=== PATIENT | male | born 1965 ===

== ENCOUNTER 2018-05-23 03:32 | Emergency (ER) | payer MEDICARE, MEDICAID ==
[2018-05-23 04:02] VITALS: RESP 18; TEMP 98.9; O2SAT 97
--- NOTE | 2018-05-23 04:18 | ED PDOC ---
HPI: Hypertension/Hypotension Time Seen by Provider: 05/23/18 03:57 Chief Complaint (Nursing): High Blood Pressure Chief Complaint (Provider): High Blood Pressure History Per: Patient History/Exam Limitations: no limitations Onset/Duration Of Symptoms: Mins (prior to arrival) Current Symptoms Are (Timing): Still Present Additional Complaint(s): 52 year old male with hx of htn and end stage renal disease (MWF dialysis, next session 10am this morning) presents to the ED for evaluation of elevated blood pressure. Patient states that prior to arrival, he checked his blood pressure and it was elevated, despite being compliant with his medications and otherwise asymptomatic, denying headache, chest pain, and shortness of breath. Of note, patient is visiting from [place] because his mother is hospitalized. PMD: none provided Past Medical History Reviewed: Historical Data, Nursing Documentation, Vital Signs Vital Signs: Last Vital Signs Temp 98.9 F 05/23/18 03:52 Pulse 65 05/23/18 03:52 Resp 18 05/23/18 03:52 BP 185/93 H 05/23/18 03:52 Pulse Ox 97 05/23/18 03:52 - Medical History PMH: HTN, End Stage Renal Disease (mwf dialysis) - Surgical History Other surgeries: av fistula - Family History Family History: States: Unknown Family Hx - Social History Current smoker - smoking cessation education provided: No Alcohol: None Drugs: Denies - Allergies Allergies/Adverse Reactions: Allergies Allergy/AdvReac Type Severity Reaction Status Date / Time No Known Allergies Allergy Verified 05/23/18 04:02 Review of Systems ROS Statement: Except As Marked, All Systems Reviewed And Found Negative Constitutional: Positive for: Other (high blood pressure) Cardiovascular: Negative for: Chest Pain Respiratory: Negative for: Shortness of Breath Neurological: Negative for: Headache Physical Exam - Reviewed Nursing Documentation Reviewed: Yes Vital Signs Reviewed: Yes - Physical Exam Appears: Positive for: No Acute Distress Head Exam: Positive for: ATRAUMATIC, NORMAL INSPECTION, NORMOCEPHALIC Skin: Positive for: Normal Color, Warm, Dry Eye Exam: Positive for: Normal appearance, EOMI, PERRL ENT: Positive for: Normal ENT Inspection Neck: Positive for: Normal, Painless ROM, Supple Cardiovascular/Chest: Positive for: Regular Rate, Rhythm Respiratory: Positive for: Normal Breath Sounds. Negative for: Accessory Muscle Use, Respiratory Distress Gastrointestinal/Abdominal: Positive for: Normal Exam, Soft. Negative for: Tenderness Back: Positive for: Normal Inspection Extremity: Positive for: Normal ROM Neurologic/Psych: Positive for: Alert, Oriented (x3) - Laboratory Results Result Diagrams: 05/23/18 04:44 05/23/18 04:44 - ECG O2 Sat by Pulse Oximetry: 97 (RA) Pulse Ox Interpretation: Normal Medical Decision Making Medical Decision Making: Time: 411 Initial Impression: 52 year old male with elevated bp and end stage renal disease Initial Plan: --EKG --CMP --CBC with differential --PT / PTT --Catapres 0.2mg PO 0630 Labs reviewed with no clinically significant abnormalities. He does have elevated creatinine and BUN levels consistent with end stage renal disease. At this time, patient's blood pressure shows significant improvements. Scribe Attestation: Documented by Radha Sánchez acting as a scribe for Pop Voss MD. Provider Scribe Attestation: All medical record entries made by the Scribe were at my direction and personally dictated by me. I have reviewed the chart and agree that the record accurately reflects my personal performance of the history, physical exam, medical decision making, and the department course for this patient. I have also personally directed, reviewed, and agree with the discharge instructions and disposition. Disposition - Clinical Impression Clinical Impression: Hypertension, End stage chronic kidney disease - Patient ED Disposition Is Patient to be Admitted: No Counseled Patient/Family Regarding: Studies Performed, Diagnosis - Disposition Disposition: Routine/Home Disposition Time: 06:36 Condition: STABLE Instructions: High Blood Pressure in Adults Forms: [facility] (Trinidadian) Print Language: GERMAN
[2018-05-23 04:53] LABS: BASO # 0.1 K/uL (0.0-0.2); BASO % 0.8 % (0.0-2.0); EOS # 0.2 K/uL (0.0-0.7); EOS % 2.5 % (0.0-4.0); HEMOGLOBIN 10.2 g/dL (12.0-18.0); LYMPH # 2.2 K/uL (1.0-4.3); LYMPH % 28.9 % (20.0-40.0); MEAN CELL VOLUME 93.4 fl (80.0-94.0); MEAN CORPUSCULAR HEMOGLOBIN 31.6 pg (27.0-31.0); MEAN CORPUSCULAR HGB CONC 33.9 g/dL (33.0-37.0); MEAN PLATELET VOLUME 8.9 fl (7.2-11.7); MONO # 0.8 K/uL (0.0-0.8); MONO % 11.2 % (0.0-10.0); NEUT # 4.3 K/uL (1.8-7.0); NEUT % 56.6 % (50.0-75.0); RBC 3.24 Mil/uL (4.40-5.90); RED CELL DISTRIBUTION WIDTH 15.9 % (11.5-14.5); WHITE BLOOD COUNT 7.5 K/uL (4.8-10.8)
[2018-05-23 05:00] LABS: PROTHROMBIN TIME 10.9 Seconds (9.8-13.1)
[2018-05-23 05:03] LABS: PARTIAL THROMBOPLASTIN TIME 39.3 Seconds (25.6-37.1)
[2018-05-23 05:11] LABS: ALB/GLOB RATIO 1.1 (1.0-2.1); ALBUMIN 4.1 g/dL (3.5-5.0); CALCIUM 9.8 mg/dL (8.4-10.2)
[2018-05-23 06:46] VITALS: BP 157/77; PULSE 53
--- NOTE | 2018-05-23 07:42 | CARD ---
APPROVED REPORT Date of service: 05/23/2018 EKG Measurement Heart [id number] <Conclusion> Sinus bradycardia Otherwise normal ECG
== END 2018-05-23 06:27 | disposition home or self-care (01) ==
LOC: H.ER 03:32
DX: I10 Essential (primary) hypertension (principal)

== ENCOUNTER 2018-05-28 20:17 | Observation (INO) | payer MEDICARE, MEDICAID ==
[2018-05-28 20:17] VITALS: BMI 33.5
--- NOTE | 2018-05-28 20:53 | ED PDOC ---
HPI: Chest Pain Time Seen by Provider: 05/28/18 20:38 Chief Complaint (Nursing): Chest Pain Chief Complaint (Provider): Chest Pain History Per: Patient History/Exam Limitations: no limitations Onset/Duration Of Symptoms: Hrs (x1.25) Current Symptoms Are (Timing): Still Present Quality: Pressure Associated Symptoms: denies: Nausea Additional Complaint(s): 52 y/o male with a PMHx of CVA and HTN presents to the ED for evaluation of constant chest pain, onset 7:30 PM today. Patient reports pain is non-radiating , non-exertional and pressure like. Patient reports he was last at dialysis today. Patient reports of taking his blood pressure and noticed it was high and took a hypertensive medication. Patient reports of taking Baby Aspirin daily. Of note, patient was discharged two days ago after being admitted for CVA. Denies shortness of breath and nausea. 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 Past Medical History Reviewed: Historical Data, Nursing Documentation, Vital Signs Vital Signs: Last Vital Signs Temp 98.8 F 05/28/18 20:31 Pulse 68 05/28/18 20:55 Resp 18 05/28/18 20:31 BP 168/81 H 05/28/18 20:31 Pulse Ox 99 05/28/18 20:55 - Medical History PMH: HTN, End Stage Renal Disease (mwf dialysis), Chronic Kidney Disease - Surgical History Surgical History: No Surg Hx Denies: CABG - Family History Family History: States: Unknown Family Hx - Home Medications Home Medications: Ambulatory Orders Medication Instructions Recorded Atenolol [Tenormin] 50 mg PO DAILY 05/24/18 Lanthanum Carbonate 1,000 mg PO TID 05/24/18 amLODIPine [Norvasc] 5 mg PO DAILY 05/24/18 cloNIDine [Catapres] 0.1 mg PO Q12 05/24/18 Aspirin 325 mg PO DAILY 30 Days #30 tab 05/26/18 Atorvastatin [Lipitor] 20 mg PO HS #30 tab 05/26/18 - Allergies Allergies/Adverse Reactions: Allergies Allergy/AdvReac Type Severity Reaction Status Date / Time No Known Allergies Allergy Verified 05/23/18 04:02 Review of Systems ROS Statement: Except As Marked, All Systems Reviewed And Found Negative Cardiovascular: Positive for: Chest Pain Respiratory: Negative for: Shortness of Breath Gastrointestinal: Negative for: Nausea Physical Exam - Reviewed Nursing Documentation Reviewed: Yes Vital Signs Reviewed: Yes - Physical Exam Appears: Positive for: No Acute Distress Head Exam: Positive for: ATRAUMATIC, NORMOCEPHALIC Skin: Positive for: Normal Color, Warm, Dry Eye Exam: Positive for: Normal appearance, EOMI, PERRL Neck: Positive for: Normal, Painless ROM Cardiovascular/Chest: Positive for: Regular Rate, Rhythm. Negative for: Murmur Respiratory: Positive for: Normal Breath Sounds. Negative for: Respiratory Distress Gastrointestinal/Abdominal: Positive for: Normal Exam, Soft. Negative for: Tenderness Back: Positive for: Normal Inspection. Negative for: L CVA Tenderness, R CVA Tenderness, Vertebral Tenderness Extremity: Positive for: Normal ROM. Negative for: Pedal Edema, Deformity Neurologic/Psych: Positive for: Alert, Oriented. Negative for: Motor/Sensory Deficits - Laboratory Results Result Diagrams: 05/28/18 21:08 - ECG ECG Rhythm: Positive for: Sinus Rhythm. Negative for: ST/T Changes Interpretation Of Abn EKG: Left Ventricular Hypertrophy Rate: 68 O2 Sat by Pulse Oximetry: 99 (RA) Pulse Ox Interpretation: Normal Medical Decision Making Medical Decision Making: Time: 2048 Plan: -- EKG -- B-Type Natriuretic -- CMP -- Lipid Panel -- Troponin I -- CBC with differentials -- PTT -- Prothrombin Time -- CXR One View -- Director Of Patient Care Scribe Attestation: Documented by Cody Reeder acting as a scribe for Zayda Brown MD. Provider Scribe Attestation: All medical record entries made by the Scribe were at my direction and personally dictated by me. I have reviewed the chart and agree that the record accurately reflects my personal performance of the history, physical exam, medical decision making, and the department course for this patient. I have also personally directed, reviewed, and agree with the discharge instructions and disposition. Disposition - Disposition Forms: [facility] (Angolan)
[2018-05-28 21:12] LABS: BASO # 0.1 K/uL (0.0-0.2); BASO % 0.7 % (0.0-2.0); EOS # 0.2 K/uL (0.0-0.7); EOS % 1.9 % (0.0-4.0); HEMOGLOBIN 11.8 g/dL (12.0-18.0); LYMPH % 21.7 % (20.0-40.0); MEAN CELL VOLUME 90.7 fl (80.0-94.0); MEAN CORPUSCULAR HEMOGLOBIN 30.9 pg (27.0-31.0); MEAN CORPUSCULAR HGB CONC 34.1 g/dL (33.0-37.0); MONO % 10.3 % (0.0-10.0); NEUT # 6.1 K/uL (1.8-7.0); NEUT % 65.4 % (50.0-75.0); RBC 3.83 Mil/uL (4.40-5.90); RED CELL DISTRIBUTION WIDTH 15.9 % (11.5-14.5); WHITE BLOOD COUNT 9.3 K/uL (4.8-10.8)
[2018-05-28 21:30] LABS: PROTHROMBIN TIME 11.1 Seconds (9.8-13.1)
[2018-05-28 21:32] LABS: PARTIAL THROMBOPLASTIN TIME 35.4 Seconds (25.6-37.1)
[2018-05-28 21:41] LABS: ALB/GLOB RATIO 1.1 (1.0-2.1); ALBUMIN 4.7 g/dL (3.5-5.0); ALT/SGPT 50 U/L (21-72); AST/SGOT 45 U/L (17-59); B-TYPE NATRIURETIC PEPTIDE 14900 pg/ml (0-900); BLOOD UREA NITROGEN 30 mg/dl (9-20); CALCIUM 9.9 mg/dL (8.4-10.2); HDL CHOLESTEROL 41 MG/DL (30-70); LDL CHOLESTEROL 32 mg/dL (0-129)
[2018-05-28 21:46] LABS: GFR NON-AFRICAN AMERICAN 6
[2018-05-29] MEDS ORDERED: Influenza Vaccine (5 YR UP)/PF 60 MCG/0.5 ML SYR IM ONE (06:00)
[2018-05-29] MEDS: LANTHANUM 1000 MG PO SCH ×3 (09:35→17:46)
--- NOTE | 2018-05-29 12:35 | RAD ---
Date of service: 05/28/2018 PROCEDURE: CHEST RADIOGRAPH, 1 VIEW HISTORY: Chest pain COMPARISON: 05/24/2018 FINDINGS: Right-sided double-lumen central venous catheter terminates in the SVC. LUNGS: The lungs are well inflated and clear. PLEURA: No pneumothorax or pleural fluid seen. CARDIOVASCULAR: Normal. OSSEOUS STRUCTURES: No significant abnormalities. VISUALIZED UPPER ABDOMEN: Normal. OTHER FINDINGS: None. IMPRESSION: No active pulmonary disease.
--- NOTE | 2018-05-29 12:35 | CARD ---
APPROVED REPORT Date of service: 05/28/2018 EKG Measurement Heart [id number] <Conclusion> Normal sinus rhythm Minimal voltage criteria for LVH, may be normal variant Borderline ECG
--- NOTE | 2018-05-29 12:36 | CARD ---
APPROVED REPORT Date of service: 05/29/2018 EKG Measurement Heart [id number] 182P48 [id number] <Conclusion> Sinus bradycardia Minimal voltage criteria for LVH, may be normal variant prolonged QT abnormal ECG
--- NOTE | 2018-05-29 16:13 | CP.PCM.HP ---
History of Present Illness - History of Present Illness History of Present Illness: CC:Chest Pain History of Present Illness: A 52 y/o male with a PMHx of CVA and HTN presents to the ED for evaluation of constant chest pain, onset 7:30 PM today. Patient reports pain is non-radiating, non-exertional and pressure like. Patient reports he was last at dialysis today. Patient reports of taking his blood pressure and noticed it was high and took a hypertensive medication. Patient reports of taking Baby Aspirin daily. Of note, patient was discharged two days ago after being admitted for CVA. Denies shortness of breath and nausea. Present on Admission - Present on Admission Any Indicators Present on Admission: No Review of Systems - Review of Systems All systems: reviewed and no additional remarkable complaints except Review of Systems: as per HPI Past Patient History - Past Medical History & Family History Past Medical History?: Yes Past Family History: Reviewed and not pertinent - Past Social History Smoking Status: Never Smoked Alcohol: None Drugs: Denies - CARDIAC Hx Cardiac Disorders: Yes Hx Hypertension: Yes - PULMONARY Hx Respiratory Disorders: No - NEUROLOGICAL Hx Neurological Disorder: Yes HX Cerebrovascular Accident: Yes - HEENT Hx HEENT Problems: Yes - RENAL Hx Chronic Kidney Disease: Yes Hx Dialysis: Yes Type of Dialysis Access: RIGHT S/C PERMACATH Date of Last Dialysis Treatment: 05/28/18 - ENDOCRINE/METABOLIC Hx Endocrine Disorders: No - HEMATOLOGICAL/ONCOLOGICAL Hx Blood Disorders: No - INTEGUMENTARY Hx Dermatological Problems: No - MUSCULOSKELETAL/RHEUMATOLOGICAL Hx Musculoskeletal Disorders: No Hx Falls: No - GASTROINTESTINAL Hx Gastrointestinal Disorders: No - GENITOURINARY/GYNECOLOGICAL Hx Genitourinary Disorders: No - PSYCHIATRIC Hx Psychophysiologic Disorder: No Hx Substance Use: No - SURGICAL HISTORY Hx Surgeries: No - ANESTHESIA Hx Anesthesia: Yes Hx Anesthesia Reactions: No Hx Malignant Hyperthermia: No Meds Allergies/Adverse Reactions: Allergies Allergy/AdvReac Type Severity Reaction Status Date / Time No Known Allergies Allergy Verified 05/23/18 04:02 Physical Exam - Constitutional Appears: Well, No Acute Distress - Head Exam Head Exam: ATRAUMATIC, NORMAL INSPECTION, NORMOCEPHALIC - Eye Exam Eye Exam: EOMI, Normal appearance, PERRL Pupil Exam: NORMAL ACCOMODATION, PERRL - ENT Exam ENT Exam: Mucous Membranes Moist, Normal Exam - Neck Exam Neck exam: Positive for: Normal Inspection - Respiratory Exam Respiratory Exam: Clear to Auscultation Bilateral, NORMAL BREATHING PATTERN - Cardiovascular Exam Cardiovascular Exam: REGULAR RHYTHM, +S1, +S2 - GI/Abdominal Exam GI & Abdominal Exam: Normal Bowel Sounds, Soft. absent: Tenderness - Extremities Exam Extremities exam: Positive for: full ROM, normal inspection - Back Exam Back exam: FULL ROM, NORMAL INSPECTION - Neurological Exam Neurological exam: Alert, CN II-XII Intact, Normal Gait, Oriented x3, Reflexes Normal - Psychiatric Exam Psychiatric exam: Normal Affect, Normal Mood - Skin Skin Exam: Dry, Intact, Normal Color, Warm Results - Vital Signs Recent Vital Signs: Last Vital Signs Temp 98.1 F 05/29/18 16:10 Pulse 59 L 05/29/18 16:10 Resp 20 05/29/18 16:10 BP 155/73 H 05/29/18 16:10 Pulse Ox 98 05/29/18 16:10 - Labs Result Diagrams: 05/28/18 21:08 05/28/18 21:08 Labs: Laboratory Results - last 24 hr 05/28/18 05/28/18 05/28/18 21:08 21:08 21:08 WBC 9.3 RBC 3.83 L Hgb 11.8 L Hct 34.7 L MCV 90.7 D MCH 30.9 MCHC 34.1 RDW 15.9 H Plt Count 216 MPV 9.0 Neut % (Auto) 65.4 Lymph % (Auto) 21.7 [place] % (Auto) 10.3 H Eos % (Auto) 1.9 Baso % (Auto) 0.7 Neut # (Auto) 6.1 Lymph # (Auto) 2.0 [place] # (Auto) 1.0 H Eos # (Auto) 0.2 Baso # (Auto) 0.1 PT 11.1 INR 1.0 APTT 35.4 Sodium 138 Potassium 4.3 Chloride 95 L Carbon Dioxide 33 H Anion Gap 14 BUN 30 H Creatinine 9.1 H* D Est GFR ( Amer) 7 Est GFR (Non-Af Amer) 6 Random Glucose 95 Calcium 9.9 Total Bilirubin 0.4 AST 45 ALT 50 Alkaline Phosphatase 84 Troponin I < 0.0120 NT-Pro-B Natriuret Pep 80999 H Total Protein 8.8 H Albumin 4.7 Globulin 4.1 H Albumin/Globulin Ratio 1.1 Triglycerides 143 Cholesterol 106 LDL Cholesterol Direct 32 HDL Cholesterol 41 05/29/18 05/29/18 05:00 13:00 WBC RBC Hgb Hct MCV MCH MCHC RDW Plt Count MPV Neut % (Auto) Lymph % (Auto) [place] % (Auto) Eos % (Auto) Baso % (Auto) Neut # (Auto) Lymph # (Auto) [place] # (Auto) Eos # (Auto) Baso # (Auto) PT INR APTT Sodium Potassium Chloride Carbon Dioxide Anion Gap BUN Creatinine Est GFR ( Amer) Est GFR (Non-Af Amer) Random Glucose Calcium Total Bilirubin AST ALT Alkaline Phosphatase Troponin I < 0.0120 < 0.0120 NT-Pro-B Natriuret Pep Total Protein Albumin Globulin Albumin/Globulin Ratio Triglycerides Cholesterol LDL Cholesterol Direct HDL Cholesterol - EKG Data EKG shows normal: Sinus rhythm Rate: Normal - Imaging and Cardiology Chest x-ray Status: Report reviewed by me Additional comment: Date of service: 05/28/2018 PROCEDURE: CHEST RADIOGRAPH, 1 VIEW HISTORY: Chest pain COMPARISON: 05/24/2018 FINDINGS: Right-sided double-lumen central venous catheter terminates in the SVC. LUNGS: The lungs are well inflated and clear. PLEURA: No pneumothorax or pleural fluid seen. CARDIOVASCULAR: Normal. OSSEOUS STRUCTURES: No significant abnormalities. VISUALIZED UPPER ABDOMEN: Normal. OTHER FINDINGS: None. IMPRESSION: No active pulmonary disease. Assessment & Plan (1) Chest pain Status: Acute Priority: High (2) CVA (cerebral vascular accident) Status: Chronic Priority: High (3) Anemia Status: Chronic Priority: Low (4) End stage chronic kidney disease Status: Chronic Priority: Low (5) Hypertension Status: Chronic Priority: Low - Assessment and Plan (Free Text) Plan: O2 Via NC ASA Serial Trop and EKG Echo- done last week and Echo Cardiology Consult
--- NOTE | 2018-05-29 18:20 | CP.PCM.CON ---
History of Present Illness - History of Present Illness History of Present Illness: patient is a 52 years of age male was just discharged from the hospital couple days ago with diagnosis of acute CVA which was minor. And patient was readmitted because of the chest pain that he came to the emergency room for further ev aluation. Patient known with end stage renal disease on maintenance hemodialysis 3 times a week Monday. History of hypertension Patient visiting temporarily here from [place] and receiving temporarily dialysis at [facility] Social history not contributory Review of Systems - Constitutional Constitutional: Anorexia. absent: Chills - Cardiovascular Cardiovascular: Chest Pain. absent: Acrocyanosis, Dyspnea, Leg Edema - Respiratory Respiratory: absent: Hemoptysis - Genitourinary Genitourinary: Nocturia - Musculoskeletal Musculoskeletal: absent: Back Pain, Numbness - Neurological Neurological: absent: Abnormal Gait, Confusion, Focal Weakness - Endocrine Endocrine: absent: Fatigue - Hematologic/Lymphatic Hematologic: absent: Easy Bleeding Past Patient History - Past Medical History & Family History Past Medical History?: Yes - Past Social History Smoking Status: Never Smoked - CARDIAC Hx Cardiac Disorders: Yes Hx Hypertension: Yes - PULMONARY Hx Respiratory Disorders: No - NEUROLOGICAL Hx Neurological Disorder: Yes HX Cerebrovascular Accident: Yes - HEENT Hx HEENT Problems: Yes - RENAL Hx Chronic Kidney Disease: Yes Hx Dialysis: Yes Type of Dialysis Access: RIGHT S/C PERMACATH Date of Last Dialysis Treatment: 05/28/18 - ENDOCRINE/METABOLIC Hx Endocrine Disorders: No - HEMATOLOGICAL/ONCOLOGICAL Hx Blood Disorders: No - INTEGUMENTARY Hx Dermatological Problems: No - MUSCULOSKELETAL/RHEUMATOLOGICAL Hx Musculoskeletal Disorders: No Hx Falls: No - GASTROINTESTINAL Hx Gastrointestinal Disorders: No - GENITOURINARY/GYNECOLOGICAL Hx Genitourinary Disorders: No - PSYCHIATRIC Hx Psychophysiologic Disorder: No Hx Substance Use: No - SURGICAL HISTORY Hx Surgeries: No - ANESTHESIA Hx Anesthesia: Yes Hx Anesthesia Reactions: No Hx Malignant Hyperthermia: No Meds Home Medications: Home Medication List Medication Instructions Recorded Confirmed Type Losartan [Cozaar] 100 mg PO DAILY #30 tab 05/30/18 Rx Allergies/Adverse Reactions: Allergies Allergy/AdvReac Type Severity Reaction Status Date / Time No Known Allergies Allergy Verified 05/23/18 04:02 - Medications Medications: Current Medications Amlodipine Besylate (Norvasc) 5 mg PO DAILY [id number] Last Admin: 05/29/18 09:35 Dose: 5 mg Aspirin (Aspirin) 325 mg PO DAILY [facility] Last Admin: 05/29/18 09:35 Dose: 325 mg Atenolol (Tenormin) 50 mg PO DAILY [facility] Last Admin: 05/29/18 09:35 Dose: 50 mg Atorvastatin Calcium (Lipitor) 20 mg PO HS [facility] Last Admin: 05/29/18 00:25 Dose: 20 mg Clonidine HCl (Catapres) 0.1 mg PO Q12 [facility] Last Admin: 05/29/18 09:35 Dose: 0.1 mg Heparin Sodium (Porcine) (Heparin) 5,000 units SC Q8 [facility]; Protocol Last Admin: 05/29/18 17:46 Dose: 5,000 units Lanthanum Carbonate (Fosrenol) 1,000 mg PO TID [facility] Last Admin: 05/29/18 17:46 Dose: 1,000 mg Physical Exam - Constitutional Appears: No Acute Distress - Eye Exam Eye Exam: Conjunctival injection - ENT Exam ENT Exam: Mucous Membranes Moist - Neck Exam Neck exam: Negative for: Lymphadenopathy - Respiratory Exam Respiratory Exam: NORMAL BREATHING PATTERN. absent: Chest Wall Tenderness, Rales, Rhonchi - Cardiovascular Exam Cardiovascular Exam: absent: Clicks, Gallop, JVD, Rubs - GI/Abdominal Exam GI & Abdominal Exam: Normal Bowel Sounds. absent: Guarding - Extremities Exam Extremities exam: Negative for: calf tenderness - Back Exam Back exam: absent: CVA tenderness (L), CVA tenderness (R) - Neurological Exam Neurological exam: Alert - Psychiatric Exam Psychiatric exam: Normal Affect Results - Vital Signs Recent Vital Signs: Last Vital Signs Temp 98.1 F 05/29/18 16:10 Pulse 59 L 05/29/18 16:10 Resp 20 05/29/18 16:10 BP 155/73 H 05/29/18 16:10 Pulse Ox 98 05/29/18 16:10 - Labs Result Diagrams: 05/28/18 21:08 05/28/18 21:08 Labs: Laboratory Results - last 24 hr 05/28/18 05/28/18 05/28/18 21:08 21:08 21:08 WBC 9.3 RBC 3.83 L Hgb 11.8 L Hct 34.7 L MCV 90.7 D MCH 30.9 MCHC 34.1 RDW 15.9 H Plt Count 216 MPV 9.0 Neut % (Auto) 65.4 Lymph % (Auto) 21.7 [place] % (Auto) 10.3 H Eos % (Auto) 1.9 Baso % (Auto) 0.7 Neut # (Auto) 6.1 Lymph # (Auto) 2.0 [place] # (Auto) 1.0 H Eos # (Auto) 0.2 Baso # (Auto) 0.1 PT 11.1 INR 1.0 APTT 35.4 Sodium 138 Potassium 4.3 Chloride 95 L Carbon Dioxide 33 H Anion Gap 14 BUN 30 H Creatinine 9.1 H* D Est GFR ( Amer) 7 Est GFR (Non-Af Amer) 6 Random Glucose 95 Calcium 9.9 Total Bilirubin 0.4 AST 45 ALT 50 Alkaline Phosphatase 84 Troponin I < 0.0120 NT-Pro-B Natriuret Pep 59310 H Total Protein 8.8 H Albumin 4.7 Globulin 4.1 H Albumin/Globulin Ratio 1.1 Triglycerides 143 Cholesterol 106 LDL Cholesterol Direct 32 HDL Cholesterol 41 05/29/18 05/29/18 05:00 13:00 WBC RBC Hgb Hct MCV MCH MCHC RDW Plt Count MPV Neut % (Auto) Lymph % (Auto) [place] % (Auto) Eos % (Auto) Baso % (Auto) Neut # (Auto) Lymph # (Auto) [place] # (Auto) Eos # (Auto) Baso # (Auto) PT INR APTT Sodium Potassium Chloride Carbon Dioxide Anion Gap BUN Creatinine Est GFR ( Amer) Est GFR (Non-Af Amer) Random Glucose Calcium Total Bilirubin AST ALT Alkaline Phosphatase Troponin I < 0.0120 < 0.0120 NT-Pro-B Natriuret Pep Total Protein Albumin Globulin Albumin/Globulin Ratio Triglycerides Cholesterol LDL Cholesterol Direct HDL Cholesterol Assessment & Plan (1) Anemia Status: Chronic Priority: Low (2) End stage chronic kidney disease Assessment and Plan: end stage renal disease patient admitted for atypical chest pain hemodialysis Monday History of hypertension Hyperphosphatemia Secondary hyperparathyroidism The plan Continue hemodialysis for tomorrow as scheduled Monday. 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
[2018-05-29 23:44] VITALS: RESP 18
[2018-05-30 05:00] VITALS: O2SAT 97
[2018-05-30 08:29] VITALS: BP 161/76; PULSE 54; TEMP 97.5
[2018-05-30] MEDS: LANTHANUM 1000 MG PO SCH ×2 (09:16→13:16)
--- NOTE | 2018-05-30 10:07 | CP.PCM.CON ---
History of Present Illness - History of Present Illness History of Present Illness: 52 y/o male admitted with chest pain Dull aching bilateral chest no radiation not related to movement or exertion claims the pain lasted one hour and has not returned NO SOB/THOMPSON Denies chest pain today Troponin: neg BNP: 14,900 EKG: NSR Echo: good LV function EF: 55-60% MR ORTIZ PMH: HTN ESRD CVA Past Patient History - Past Medical History & Family History Past Medical History?: Yes Past Family History: Reviewed and not pertinent - Past Social History Smoking Status: Never Smoked Alcohol: None Drugs: Denies - CARDIAC Hx Cardiac Disorders: Yes Hx Hypertension: Yes - PULMONARY Hx Respiratory Disorders: No - NEUROLOGICAL Hx Neurological Disorder: Yes HX Cerebrovascular Accident: Yes - HEENT Hx HEENT Problems: Yes - RENAL Hx Chronic Kidney Disease: Yes Hx Dialysis: Yes Type of Dialysis Access: RIGHT S/C PERMACATH Date of Last Dialysis Treatment: 05/28/18 - ENDOCRINE/METABOLIC Hx Endocrine Disorders: No - HEMATOLOGICAL/ONCOLOGICAL Hx Blood Disorders: No - INTEGUMENTARY Hx Dermatological Problems: No - MUSCULOSKELETAL/RHEUMATOLOGICAL Hx Musculoskeletal Disorders: No Hx Falls: No - GASTROINTESTINAL Hx Gastrointestinal Disorders: No - GENITOURINARY/GYNECOLOGICAL Hx Genitourinary Disorders: No - PSYCHIATRIC Hx Psychophysiologic Disorder: No Hx Substance Use: No - SURGICAL HISTORY Hx Surgeries: No - ANESTHESIA Hx Anesthesia: Yes Hx Anesthesia Reactions: No Hx Malignant Hyperthermia: No Meds Home Medications: Home Medication List Medication Instructions Recorded Confirmed Type Losartan [Cozaar] 100 mg PO DAILY #30 tab 05/30/18 Rx Allergies/Adverse Reactions: Allergies Allergy/AdvReac Type Severity Reaction Status Date / Time No Known Allergies Allergy Verified 05/23/18 04:02 - Medications Medications: Current Medications Amlodipine Besylate (Norvasc) 5 mg PO DAILY [facility] Last Admin: 05/29/18 09:35 Dose: 5 mg Aspirin (Aspirin) 325 mg PO DAILY [facility] Last Admin: 05/30/18 09:16 Dose: 325 mg Atenolol (Tenormin) 50 mg PO DAILY [facility] Last Admin: 05/30/18 09:16 Dose: 50 mg Atorvastatin Calcium (Lipitor) 20 mg PO HS [facility] Last Admin: 05/29/18 21:58 Dose: 20 mg Clonidine HCl (Catapres) 0.1 mg PO Q12 [facility] Last Admin: 05/30/18 09:16 Dose: 0.1 mg Heparin Sodium (Porcine) (Heparin) 5,000 units SC Q8 [facility]; Protocol Last Admin: 05/30/18 09:16 Dose: 5,000 units Lanthanum Carbonate (Fosrenol) 1,000 mg PO TID [facility] Last Admin: 05/30/18 09:16 Dose: 1,000 mg Physical Exam - Constitutional Appears: Well - Head Exam Head Exam: NORMAL INSPECTION - Eye Exam Eye Exam: Normal appearance - ENT Exam ENT Exam: Normal Exam - Respiratory Exam Respiratory Exam: NORMAL BREATHING PATTERN - Cardiovascular Exam Cardiovascular Exam: REGULAR RHYTHM Results - Vital Signs Recent Vital Signs: Last Vital Signs Temp 97.5 F L 05/30/18 08:28 Pulse 54 L 05/30/18 08:28 Resp 18 05/30/18 08:28 BP 161/76 H 05/30/18 08:28 Pulse Ox 97 05/30/18 08:28 - Labs Result Diagrams: 05/28/18 21:08 05/28/18 21:08 Labs: Laboratory Results - last 24 hr 05/29/18 13:00 Troponin I < 0.0120 Assessment & Plan (1) Chest pain Assessment and Plan: Non Cardiac chest pain pt may be discharged Status: Acute Priority: High (2) Anemia Status: Chronic Priority: Low (3) CVA (cerebral vascular accident) Status: Chronic Priority: High (4) End stage chronic kidney disease Status: Chronic Priority: Low (5) Hypertension Status: Chronic Priority: Low
--- NOTE | 2018-05-30 13:51 | CP.PCM.PN ---
Subjective - Date & Time of Evaluation Date of Evaluation: 05/30/18 Time of Evaluation: 13:50 - Subjective Subjective: dialysis note he was seen on hemodialysis now. Vital signs stable Blood pressure elevated predialysis and to be rechecked post dialysis No chest pain no shortness of breath Objective - Vital Signs/Intake and Output Vital Signs (last 24 hours): Temp Pulse Resp BP Pulse Ox 97.5 F L 54 L 18 161/76 H 97 05/30/18 08:28 05/30/18 08:28 05/30/18 08:28 05/30/18 08:28 05/30/18 08:28 - Medications Medications: Current Medications Amlodipine Besylate (Norvasc) 5 mg PO DAILY [facility] Last Admin: 05/30/18 09:16 Dose: 5 mg Aspirin (Aspirin) 325 mg PO DAILY [facility] Last Admin: 05/30/18 09:16 Dose: 325 mg Atenolol (Tenormin) 50 mg PO DAILY [facility] Last Admin: 05/30/18 09:16 Dose: 50 mg Atorvastatin Calcium (Lipitor) 20 mg PO HS [facility] Last Admin: 05/29/18 21:58 Dose: 20 mg Clonidine HCl (Catapres) 0.1 mg PO Q12 [facility] Last Admin: 05/30/18 09:16 Dose: 0.1 mg Heparin Sodium (Porcine) (Heparin) 5,000 units SC Q8 [facility]; Protocol Last Admin: 05/30/18 09:16 Dose: 5,000 units Lanthanum Carbonate (Fosrenol) 1,000 mg PO TID [facility] Last Admin: 05/30/18 13:16 Dose: 1,000 mg Losartan Potassium (Cozaar) 100 mg PO DAILY [facility] - Labs Labs: 05/28/18 21:08 05/28/18 21:08 PT 11.1 Seconds (9.8-13.1) 05/28/18 21:08 INR 1.0 05/28/18 21:08 APTT 35.4 Seconds (25.6-37.1) 05/28/18 21:08 - Constitutional Appears: No Acute Distress - Eye Exam Eye Exam: Conjunctival injection - ENT Exam ENT Exam: Mucous Membranes Moist - Neck Exam Neck Exam: absent: Lymphadenopathy - Respiratory Exam Respiratory Exam: NORMAL BREATHING PATTERN. absent: Chest Wall Tenderness - Cardiovascular Exam Cardiovascular Exam: REGULAR RHYTHM. absent: Gallop, JVD - GI/Abdominal Exam GI & Abdominal Exam: Soft, Normal Bowel Sounds - Extremities Exam Extremities Exam: absent: Calf Tenderness - Back Exam Back Exam: absent: CVA tenderness (L), CVA tenderness (R) - Neurological Exam Neurological Exam: Alert - Psychiatric Exam Psychiatric exam: Normal Affect - Skin Skin Exam: absent: Cyanosis Assessment and Plan (1) Anemia Status: Chronic (2) End stage chronic kidney disease Assessment & Plan: end stage renal disease Hypertension we will add losartan Potassium bath 2 mEq Carbonate bath 34 Ultrafiltration 2500 mL He was seen on hemodialysis and I discussed the dialysis order with the dialysis nurse at the bedside Status: Chronic (3) Hypertension Status: Chronic
--- NOTE | 2018-05-30 14:09 | CP.PCM.PCO ---
Assessment & Plan - Assessment and Plan (Free Text) Assessment: pt. cleared for discharge today after dialysis by , and check VS post HD- d/w [facility]
[2018-05-30 17:42] LABS: HEPATITIS B SURFACE AG Negative (NEGATIVE)
[2018-05-30 17:47] LABS: HEPATITIS B CORE AB NEGATIVE (NEGATIVE)
[2018-05-30 17:59] LABS: HEPATITIS C ANTIBODY NEGATIVE (NEGATIVE)
--- NOTE | 2018-05-31 09:12 | CP.PCM.DIS ---
Provider - Provider Date of Admission: 05/28/18 21:53 Attending physician: Kosta Alanis MD Time Spent in preparation of Discharge (in minutes): 25 Diagnosis - Discharge Diagnosis (1) Chest pain Status: Acute Priority: High (2) CVA (cerebral vascular accident) Status: Chronic Priority: Medium (3) Anemia Status: Chronic Priority: Low (4) End stage chronic kidney disease Status: Chronic Priority: Low (5) Hypertension Status: Chronic Priority: Low Hospital Course - Lab Results Lab Results: Most Recent Lab Values WBC 9.3 K/uL (4.8-10.8) 05/28/18 21:08 RBC 3.83 Mil/uL (4.40-5.90) L 05/28/18 21:08 Hgb 11.8 g/dL (12.0-18.0) L 05/28/18 21:08 Hct 34.7 % (35.0-51.0) L 05/28/18 21:08 MCV 90.7 fl (80.0-94.0) D 05/28/18 21:08 MCH 30.9 pg (27.0-31.0) 05/28/18 21:08 MCHC 34.1 g/dL (33.0-37.0) 05/28/18 21:08 RDW 15.9 % (11.5-14.5) H 05/28/18 21:08 Plt Count 216 K/uL (130-400) 05/28/18 21:08 MPV 9.0 fl (7.2-11.7) 05/28/18 21:08 Neut % (Auto) 65.4 % (50.0-75.0) 05/28/18 21:08 Lymph % (Auto) 21.7 % (20.0-40.0) 05/28/18 21:08 [place] % (Auto) 10.3 % (0.0-10.0) H 05/28/18 21:08 Eos % (Auto) 1.9 % (0.0-4.0) 05/28/18 21:08 Baso % (Auto) 0.7 % (0.0-2.0) 05/28/18 21:08 Neut # (Auto) 6.1 K/uL (1.8-7.0) 05/28/18 21:08 Lymph # (Auto) 2.0 K/uL (1.0-4.3) 05/28/18 21:08 [place] # (Auto) 1.0 K/uL (0.0-0.8) H 05/28/18 21:08 Eos # (Auto) 0.2 K/uL (0.0-0.7) 05/28/18 21:08 Baso # (Auto) 0.1 K/uL (0.0-0.2) 05/28/18 21:08 PT 11.1 Seconds (9.8-13.1) 05/28/18 21:08 INR 1.0 05/28/18 21:08 APTT 35.4 Seconds (25.6-37.1) 05/28/18 21:08 Sodium 138 mmol/l (132-148) 05/28/18 21:08 Potassium 4.3 MMOL/L (3.6-5.0) 05/28/18 21:08 Chloride 95 mmol/L (98-107) L 05/28/18 21:08 Carbon Dioxide 33 mmol/L (22-30) H 05/28/18 21:08 Anion Gap 14 (10-20) 05/28/18 21:08 BUN 30 mg/dl (9-20) H 05/28/18 21:08 Creatinine 9.1 mg/dl (0.8-1.5) H* D 05/28/18 21:08 Est GFR ( Amer) 7 05/28/18 21:08 Est GFR (Non-Af Amer) 6 05/28/18 21:08 Random Glucose 95 mg/dL (75-110) 05/28/18 21:08 Calcium 9.9 mg/dL (8.4-10.2) 05/28/18 21:08 Total Bilirubin 0.4 mg/dl (0.2-1.3) 05/28/18 21:08 AST 45 U/L (17-59) 05/28/18 21:08 ALT 50 U/L (21-72) 05/28/18 21:08 Alkaline Phosphatase 84 U/L (38-126) 05/28/18 21:08 Troponin I < 0.0120 ng/mL (0.00-0.120) 05/29/18 13:00 NT-Pro-B Natriuret Pep 12633 pg/ml (0-900) H 05/28/18 21:08 Total Protein 8.8 G/DL (6.3-8.2) H 05/28/18 21:08 Albumin 4.7 g/dL (3.5-5.0) 05/28/18 21:08 Globulin 4.1 gm/dL (2.2-3.9) H 05/28/18 21:08 Albumin/Globulin Ratio 1.1 (1.0-2.1) 05/28/18 21:08 Triglycerides 143 mg/DL (0-149) 05/28/18 21:08 Cholesterol 106 mg/dL (0-199) 05/28/18 21:08 LDL Cholesterol Direct 32 mg/dL (0-129) 05/28/18 21:08 HDL Cholesterol 41 MG/DL (30-70) 05/28/18 21:08 Hep Bs Antigen Negative (NEGATIVE) 05/30/18 11:47 Hep Bs Antibody Positive (NEGATIVE) 05/30/18 11:47 Hep B Core IgM Ab Negative (NEGATIVE) 05/30/18 11:47 Hepatitis C Antibody Negative (NEGATIVE) 05/30/18 11:47 Discharge Exam - Head Exam Head Exam: NORMAL INSPECTION Discharge Plan - Discharge Medications Prescriptions: Losartan [Cozaar] 100 mg PO DAILY #30 tab - Follow Up Plan Condition: FAIR Disposition: HOME/ ROUTINE Instructions: Chest Pain (DC), End Stage Kidney Disease (DC) Additional Instructions: pt. cleared for discharge today after dialysis by , and check VS post HD- d/w [facility] follow up with pmd in 1 week continue dialysis [facility] Referrals: John Craft MD [Staff Provider] - Kosta Alanis MD [Staff Provider] -
== END 2018-05-30 16:10 | disposition home or self-care (01) ==
LOC: H.ER 20:17 → H.ERHOLD 21:53 → H.TEL 23:00
PROVIDERS: ADMIT Internal Medicine; ATTEND Internal Medicine
DX: R07.89 Other chest pain (principal); I12.0 Hypertensive chronic kidney disease with stage 5 chronic kidney disease or end stage renal disease; N18.6 End stage renal disease; D63.1 Anemia in chronic kidney disease; Z99.2 Dependence on renal dialysis; Z86.73 Personal history of transient ischemic attack (TIA), and cerebral infarction without residual deficits; Z23 Encounter for immunization; Z79.82 Long term (current) use of aspirin
CPT/HCPCS: 36415; 71045; 80053; 80061; 83880; 84484; 85025; 85610; 85730; 86705; 86706; 86803; 87340; 93005; 99284; G0008; G0378; J1644; Q2035